=== PATIENT | female | born 1955 | race Caucasian/White ===

== ENCOUNTER 2017-11-01 06:36 | Emergency (ER) | payer OTHER ==
[2017-11-01 07:02] LABS: BILIRUBIN,URINE NEGATIVE (NEGATIVE); GLUCOSE, URINE (UA) NEGATIVE (NEGATIVE); KETONES,URINE (UA) NEGATIVE (NEGATIVE); LEUKOCYTE ESTERASE, URINE NEGATIVE (NEGATIVE); NITRITE,URINE POSITIVE (NEGATIVE); OCCULT BLOOD,URINE SMALL (NEGATIVE); PH,URINE 5.5 PH (5.0-7.5); PROTEIN,URINE NEGATIVE (NEGATIVE); UROBILINOGEN,URINE 0.2 (NORMAL) E.U./dL (NORMAL)
[2017-11-01 07:15] LABS: CLARITY,URINE SL. CLOUDY (CLEAR)
[2017-11-01 07:16] LABS: BACTERIA,URINE Many /HPF (None Seen); SQUAMOUS EPITHELIAL CELL,UR RARE Squamous (<= Few)
[2017-11-01] MEDS ORDERED: KETOROLAC 60 MG/2 ML VIAL IVP STA (07:24)
--- NOTE | 2017-11-01 07:29 | ED Physician Documentation ---
PD HPI ABD PAIN - Stated complaint Stated Complaint: ABD PX/BACK PX - Chief complaint Chief Complaint: Abd Pain - History obtained from History obtained from: Patient - History of Present Illness Timing - onset: How many hours ago (5) Timing - duration: Hours (5) Timing - details: Still present Pain level now: 8 Quality: Pain Location: Other (Not well localized.) Radiation: Upper back Improved by: Other (nothing) Worsened by: Other (nothing) Associated symptoms: No: Fever, Nausea, Vomiting, Diarrhea, Dysuria Similar symptoms before: Has not had sx before - Additional information Additional information: The patient is a 62-year-old female who presents with abdominal pain that started about 2:30 this morning and has persisted since that time. The abdominal pain is generalized and radiates into the upper back. She rates it at 8 out of 10 in severity. She denies associated nausea, vomiting, diarrhea, fever, or dysuria. She has no history of similar symptoms in the past. She has had no abdominal surgery. She last ate last night about 9 PM. Review of Systems Constitutional: denies: Fever Nose: denies: Congestion Throat: denies: Sore throat Cardiac: denies: Chest pain / pressure Respiratory: denies: Dyspnea, Cough GI: reports: Abdominal Pain. denies: Nausea, Vomiting, Diarrhea : denies: Dysuria Skin: denies: Rash Musculoskeletal: reports: Back pain Neurologic: denies: Focal weakness, Numbness, Headache PD PAST MEDICAL HISTORY - Past Medical History Cardiovascular: Hypertension, High cholesterol Endocrine/Autoimmune: Type 2 diabetes : Frequency HEENT: Glaucoma, Other Musculoskeletal: Osteoarthritis - Past Surgical History Ortho: Hip replacement - Present Medications Home Medications: Ambulatory Orders Medication Instructions Recorded Confirmed Nitrofurantoin [Macrobid] 100 mg PO BID #10 capsule 11/01/17 Promethazine [Phenergan] 25 - 50 mg PO Q6H PRN #10 tab 11/01/17 - Allergies Allergies/Adverse Reactions: Allergies Allergy/AdvReac Type Severity Reaction Status Date / Time No Known Drug Allergies Allergy Verified 11/01/17 06:43 - Social History Does the pt smoke?: No Smoking Status: Never smoker Does the pt drink ETOH?: Yes Substance Use and Type: Other - Immunizations Immunizations are current?: No PD ED PE NORMAL - Vitals Vital signs reviewed: Yes (Hypertensive) - General General: Alert and oriented X 3, Well developed/nourished - HEENT HEENT: Atraumatic, Moist mucous membranes, Pharynx benign - Neck Neck: No adenopathy, No JVD - Cardiac Cardiac: RRR, No murmur - Respiratory Respiratory: No respiratory distress, Clear bilaterally - Abdomen Abdomen: Normal bowel sounds, Soft, No organomegaly, Other (Tender to palpation in the right upper quadrant, without rebound tenderness or guarding.) - Back Back: No CVA TTP - Derm Derm: No rash - Extremities Extremities: No edema, No calf tenderness / cord - Neuro Neuro: Alert and oriented X 3, No motor deficit, No sensory deficit, Normal speech Results - Vitals Vitals: Oxygen O2 Source Room air - Labs Labs: Microbiology 11/01/17 06:45 Urine Culture - Preliminary Urine,Clean Catch Laboratory Tests 11/01/17 11/01/17 11/01/17 06:45 07:40 07:40 WBC 8.9 RBC 4.70 Hgb 14.2 Hct 41.1 MCV 87.5 MCH 30.2 MCHC 34.5 RDW 12.4 Plt Count 152 MPV 9.5 Neut # 7.4 H Lymph # 1.1 L Gregg # 0.4 Eos # 0.1 Baso # 0.0 Absolute Nucleated RBC 0.00 Nucleated RBC % 0.0 Sodium 136 Potassium 4.0 Chloride 103 Carbon Dioxide 24 Anion Gap 9.0 BUN 26 H Creatinine 0.8 Estimated GFR (MDRD) 73 L Glucose 189 H Calcium 9.7 Total Bilirubin 0.7 AST 25 ALT 28 Alkaline Phosphatase 60 Total Protein 7.3 Albumin 4.6 Globulin 2.7 Albumin/Globulin Ratio 1.7 Lipase 21 L Urine Color YELLOW Urine Clarity SL. CLOUDY Urine pH 5.5 Ur Specific [place] 1.025 Urine Protein NEGATIVE Urine Glucose (UA) NEGATIVE Urine Ketones NEGATIVE Urine Occult Blood SMALL H Urine Nitrite POSITIVE H Urine Bilirubin NEGATIVE Urine Urobilinogen 0.2 (NORMAL) Ur Leukocyte Esterase NEGATIVE Urine RBC 6-10 H Urine WBC 6-10 H Ur Squamous Epith Cells RARE Squamous Urine Bacteria Many H Ur Microscopic Review INDICATED Urine Culture Comments INDICATED - Rads (name of study) RUQ U/S Radiology: Prelim report reviewed, EMP read contemporaneously, See rad report ( Cholelithiasis, without evidence of acute cholecystitis. Common bile duct 3 mm. Otherwise normal.) PD MEDICAL DECISION MAKING - ED course Complexity details: reviewed results, re-evaluated patient, considered differential, d/w patient ED course: The patient's presentation is most consistent with symptomatic cholelithiasis, although she also has evidence of urinary tract infection, with pyuria and bacteriuria. Ultrasound of the right upper quadrant reveals cholelithiasis, without evidence of acute cholecystitis. Her white count is normal, as are liver enzymes and lipase. Treatment in the emergency department included administration of normal saline 1 L IV, ketorolac 30 mg IV, morphine 5 mg IV, and ondansetron 4 mg IV. Her symptoms markedly improved with the above treatment. Macrobid 100 mg was administered orally. She is being discharged with prescriptions for Macrobid and for Phenergan. I discussed with her the results of the workup and the diagnoses, outpatient treatment and follow-up, as well as potentially worrisome signs or symptoms that should prompt reevaluation in the emergency department. Departure - Departure Disposition: 01 Home, Self Care Clinical Impression: Dehydration Abdominal pain Qualifiers: Abdominal location: right upper quadrant Qualified Code(s): R10.11 - Right upper quadrant pain Cholelithiasis Qualifiers: Cholelithiasis location: gallbladder Cholecystitis presence: without cholecystitis Biliary obstruction: without biliary obstruction Qualified Code(s) : K80.20 - Calculus of gallbladder without cholecystitis without obstruction Urinary tract infection Qualifiers: Urinary tract infection type: acute cystitis Hematuria presence: without hematuria Qualified Code(s): N30.00 - Acute cystitis without hematuria Condition: Stable Instructions: Gallstones, ED UTI Cystitis Female Prescriptions: Nitrofurantoin [Macrobid] 100 mg PO BID #10 capsule Promethazine [Phenergan] 25 - 50 mg PO Q6H PRN #10 tab PRN Reason: Nausea / Vomiting Comments: Drink plenty of fluids, including cranberry juice. Take Macrobid twice daily as prescribed. You can use Phenergan as prescribed if needed for nausea. Follow up with your primary physician within 1-2 weeks. Call to schedule an appointment. Return to the emergency department if you develop increasing abdominal pain, persistent vomiting, fever with shaking chills, or otherwise worsening symptoms. Discharge Date/Time: 11/01/17 11:09
[2017-11-01 08:01] LABS: BASOPHILS % (AUTO) 0.5 %; EOSINOPHILS # (AUTO) 0.1 10^3/uL (0.0-0.7); EOSINOPHILS % (AUTO) 0.8 %; HGB - HEMOGLOBIN 14.2 g/dL (12.0-16.0); LYMPHOCYTES # (AUTO) 1.1 10^3/uL (1.5-3.5); LYMPHOCYTES % (AUTO) 12.3 %; MEAN CORPUSCULAR HEMOGLOBIN 30.2 pg (27.0-31.0); MEAN CORPUSCULAR HGB CONC 34.5 g/dL (32.0-36.0); MEAN CORPUSCULAR VOLUME 87.5 fL (81.0-99.0); MEAN PLATELET VOLUME 9.5 fL (7.9-10.8); MONOCYTES # (AUTO) 0.4 10^3/uL (0.0-1.0); NEUTROPHILS # (AUTO) 7.4 10^3/uL (1.5-6.6); NEUTROPHILS % (AUTO) 82.4 %; PLT - PLATELET COUNT 152 10^3/uL (130-450); RED CELL DISTRIBUTION WIDTH 12.4 % (12.0-15.0); WHITE BLOOD COUNT 8.9 x10^3/uL (4.8-10.8)
[2017-11-01 08:10] LABS: ALBUMIN 4.6 g/dL (3.2-5.5); ALBUMIN/GLOBULIN RATIO 1.7 (1.0-2.2); BILIRUBIN,TOTAL 0.7 mg/dL (0.2-1.0); CALCIUM 9.7 mg/dL (8.5-10.3); CREATININE 0.8 mg/dL (0.4-1.0); TOTAL PROTEIN 7.3 g/dL (6.7-8.2)
[2017-11-01] MEDS ORDERED: ONDANSETRON 4 MG/2 ML VIAL IVP STA (08:50)
[2017-11-01] MEDS ORDERED: MORPHINE 10 MG/ML VIAL IVP STA (08:50)
[2017-11-01] MEDS ORDERED: SODIUM CHLORIDE 0.9% 1,000 ML IV ONE (09:36)
[2017-11-01] MEDS ORDERED: NITROFURANTOIN MACRO 100 MG CAPSULE PO STA (09:36)
--- NOTE | 2017-11-01 09:53 | Ultrasound Report ---
RIGHT UPPER QUADRANT ULTRASOUND: 11/01/2017 CLINICAL INDICATION: Pain. TECHNIQUE: Real-time scanning was performed with transportation services representative static images obtained. FINDINGS: The liver measures 13.4 cm. Hepatic echotexture is normal. No intrahepatic biliary dilatation or focal parenchymal lesion is seen. The common bile duct measures 3 mm. The gallbladder demonstrates cholelithiasis. No wall thickening or pericholecystic fluid is present. The right kidney measures 10.1 cm, and demonstrates no hydronephrosis. No free fluid is seen. IMPRESSION: CHOLELITHIASIS, WITHOUT EVIDENCE OF ACUTE CHOLECYSTITIS OR BILIARY DILATATION. TD: 11/01/2017 09:52
[2017-11-01 11:09] VITALS: BP 115/74
== END 2017-11-01 11:09 | disposition home or self-care (01) ==
LOC: ED 06:36
DX: E86.0 Dehydration (principal); K80.20 Calculus of gallbladder without cholecystitis without obstruction; N30.00 Acute cystitis without hematuria; R10.11 Right upper quadrant pain; I10 Essential (primary) hypertension; E78.00 Pure hypercholesterolemia, unspecified; E11.9 Type 2 diabetes mellitus without complications; M19.90 Unspecified osteoarthritis, unspecified site
CPT/HCPCS: 36415; 76705; 80053; 81001; 83690; 85025; 87077; 87086; 87181; 96361; 96374; 99283; 99284; A9270; 81003

== ENCOUNTER 2018-08-01 06:11 | Day surgery (SDC) | payer OTHER ==
[2018-08-01] MEDS ORDERED: CYCLOPENTOLATE 1% OPHTH DROPS 2 ML ONE (06:30)
[2018-08-01] MEDS ORDERED: KETOROLAC 0.45% OPHTH DROPS ONE (06:30)
[2018-08-01] MEDS ORDERED: PROPARACAINE 0.5% OPHTH DROPS 15 ML ONE (06:30)
[2018-08-01] MEDS ORDERED: PHENYLEPHRINE 2.5% OPHTH 2 ML DROPS ONE (06:30)
[2018-08-01] MEDS ORDERED: LACTATED RINGERS 500 ML IV ONE (06:34)
[2018-08-01] MEDS ORDERED: KETOROLAC 0.45% OPHTH DROPS RIGHTEYE ONE (06:45)
[2018-08-01] MEDS ORDERED: PHENYLEPHRINE 2.5% OPHTH 2 ML DROPS RIGHTEYE ONE (06:45)
[2018-08-01] MEDS ORDERED: PROPARACAINE 0.5% OPHTH DROPS 15 ML RIGHTEYE ONE (06:45)
[2018-08-01] MEDS ORDERED: CYCLOPENTOLATE 1% OPHTH DROPS 2 ML RIGHTEYE ONE (06:45)
--- NOTE | 2018-08-01 07:09 | ANESTHESIA ---
Pre-Anesthesia VS, & Labs - Diagnosis combined senile cataract - Procedure cataract extraction wiyh intra ocular lens implant Vital Signs: Temp Pulse Resp BP Pulse Ox 36.4 C L 53 L 20 145/86 H 97 08/01/18 06:38 08/01/18 06:38 08/01/18 06:38 08/01/18 06:38 08/01/18 06:38 Height 5 ft 4 in Weight (kg) 70.76 kg Body Mass Index 28.3 - NPO >8 hours - Is Patient ?: Not Applicable - Lab Results Current Lab Results: Laboratory Tests 08/01/18 06:53: POC Whole Bld Glucose 127 H Home Medications and Allergies Home Medications: Ambulatory Orders Losartan [Cozaar] 50 mg PO DAILY 08/01/18 Losartan [Cozaar] 50 mg PO DAILY 08/01/18 Allergies/Adverse Reactions: Allergies Allergy/AdvReac Type Severity Reaction Status Date / Time No Known Drug Allergies Allergy Verified 11/01/17 06:43 Anes History & Medical History - Anesthetic History Anesthesia Complications: reports: No previous complications Family history of Anesthesia Complications: Denies Family history of Malignant Hyperthermia: Denies - Medical History Cardiovascular: reports: Hypertension, High cholesterol Pulmonary: reports: None Gastrointestinal: reports: Colon polyps Urinary: reports: None Musculoskeletal: reports: Osteoarthritis, Chronic back pain Endocrine/Autoimmune: reports: Type 2 diabetes Smoking Status: Never smoker - Surgical History General: Colonoscopy Orthopedic: Hip replacement Exam General: Alert Dental: Loose/Frag, Other (cap) Mouth Openin Fingerbreadth Neck Mobility: Normal Mallampati classification: III Thyromental Distance: 4-6 cm Respiratory: Lungs clear, Normal breath sounds, No respiratory distress, No accessory muscle use Cardiovascular: Normal S1, Normal S2 Mental/Cognitive Status: Alert/Oriented X3, Normal for patient Plan Anesthesia Type: MAC Consent for Procedure(s) Verified and Reviewed: No Code Status: Attempt Resuscitation ASA classification: 2-Mild systemic disease Is this case an emergency?: No
[2018-08-01] MEDS ORDERED: BRIMONIDINE 0.2% OPHTH DROPS 5 ML ONE (07:10)
[2018-08-01] MEDS ORDERED: TRIAMCIN/MOXIFLOX OPHTHALMIC 0.6 ML VIAL IO ONE ×2 (07:10→07:38)
[2018-08-01] MEDS ORDERED: EPINEPHrine 1 MG/ML AMP ONE (07:11)
[2018-08-01] MEDS ORDERED: TIMOLOL 0.5% OPHTH DROPS ONE (07:11)
[2018-08-01] MEDS ORDERED: BSS/LIDOCAINE/EPINEPHRINE 1 ML SYRINGE ONE (07:12)
[2018-08-01] MEDS ORDERED: VANCOMYCIN OPHTHALMI 8MG/0.8ML 8 MG/0.8 ML SYRINGE IO ONE ×2 (07:12→07:39)
[2018-08-01] MEDS ORDERED: MIDAZOLAM 2 MG/2 ML VIAL IVP ONE (07:34)
[2018-08-01] MEDS ORDERED: BRIMONIDINE 0.2% OPHTH DROPS 5 ML OPTH ONE (07:37)
[2018-08-01] MEDS ORDERED: EPINEPHrine 1 MG/ML AMP IVP ONE (07:38)
[2018-08-01] MEDS ORDERED: BSS/LIDOCAINE/EPINEPHRINE 1 ML SYRINGE IO ONE (07:38)
[2018-08-01] MEDS ORDERED: TIMOLOL 0.5% OPHTH DROPS OPTH ONE (07:38)
[2018-08-01] MEDS ORDERED: CHONDR SULF/HYALURONATE SYRINGE IO ONE (07:38)
[2018-08-01 08:06] VITALS: BP 116/75
--- NOTE | 2018-08-01 08:26 | OPERATIVE REPORT ---
DATE OF SERVICE: 08/01/2018 Physician: Rizwan Cain MD PREOPERATIVE DIAGNOSIS: Visually significant cataract, right eye. This was her first cataract surge ry. We are also doing surgery because she has glaucoma and there has been some difficulty in control ling her glaucoma, and the hope is that cataract surgery will allow us to do laser or, in itself, low er her pressure. POSTOPERATIVE DIAGNOSIS: Visually significant cataract, right eye. This was her first cataract surg carmela. We are also doing surgery because she has glaucoma and there has been some difficulty in contro lling her glaucoma, and the hope is that cataract surgery will allow us to do laser or, in itself, lo wer her pressure. PROCEDURE: Phacoemulsification with posterior chamber intraocular lens implant, right eye. SURGEON: Rizwan Cain MD SUPERVISOR INSTRUMENT REPAIR: ANESTHESIA TYPE: Monitored anesthesia care. COMPLICATIONS: None. OPERATIVE INDICATIONS: This is a 63-year-old woman with progressive vision loss in the right eye due to 1-2+ nuclear sclerotic and 3+ cortical cataract. Best corrected visual acuity was 20/25 with gla re to 20/40 in the right eye. Indications for surgery are overall decrease in vision, difficulty see ing words on a computer screen, difficulty reading; difficulty seeing words, closed caption or game s cores on TV; difficulty seeing street signs, difficulty driving in low light or at night, difficulty driving at night because headlights from other vehicles, and difficulty with glare or bright lights i n any situation, and also to have some sort of positive effect on the control of her glaucoma. She w as consented at length concerning risks and benefits of cataract surgery and of glaucoma treatment, a fter which she expressed a desire to proceed with surgery. OPERATIVE PROCEDURE: Patient was taken to into OR #3 and placed under monitored anesthesia care. A surgical timeout was conducted confirming correct patient, correct procedure, correct surgical site. She was given topical anesthesia, and then prepped and draped in the usual sterile fashion. The eye was entered at the 12 and 9 o'clock positions. Intracameral Shugarcaine was injected into the anter ior chamber, followed by Viscoat. A continuous-tear curvilinear capsulorrhexis was performed. The n ucleus was hydrodissected and phacoemulsified. The cortex was evacuated using automated infusion and aspiration. Provisc was injected in the capsular bag, and an 8.0 diopter intraocular lens inserted in the bag. Approximately 0.8 mL of a mixture of triamcinolone, moxifloxacin, and vancomycin was inj ected subconjunctivally in the superior quadrant for infection and inflammation prophylaxis. I and A was used to evacuate the viscoelastic materials. The eye was inflated to physiologic pressure using a balanced salt solution and found to be watertight. Patient was taken from the operating room in g ood condition and given postop instructions. TD: 08/01/2018 08:06
== END 2018-08-01 06:12 | disposition home or self-care (01) ==
LOC: SDS 06:11
PROVIDERS: ATTEND Ophthalmology
PROC: 08RJ3JZ Replacement of Right Lens with Synthetic Substitute, Percutaneous Approach (ICD-10-PCS; principal; 2018-08-01 07:30)
DX: H25.811 Combined forms of age-related cataract, right eye (principal); H40.1190 Primary open-angle glaucoma, unspecified eye, stage unspecified; E11.9 Type 2 diabetes mellitus without complications; I10 Essential (primary) hypertension
CPT/HCPCS: 66984; A9270; J3490

== ENCOUNTER 2018-08-16 10:49 | Outpatient (CLI) | payer OTHER ==
--- NOTE | 2018-08-16 12:38 | Mammography Report ---
Reason: MASTODYNIA Procedure Date: 08/16/2018 Accession Number: [id number] / [id number] Procedure: MARISSA - Diagnostic Dig Bilat CPT Code: FULL RESULT: EXAM: Diagnostic Dig Bilat DATE: 08/16/2018 11:28 AM CLINICAL HISTORY: Mastodynia, left breast on and off for years. TECHNIQUE: Bilateral CC and MLO views as well as a left ML view were obtained. COMPARISON: 09/25/2011. FINDINGS: The breasts demonstrate diffuse fatty replacement bilaterally. No suspicious calcifications, architectural distortion or masses identified in either breast. Specifically, the left breast is normal mammographically. IMPRESSION: Negative examination RECOMMENDATION: Recommend routine annual Screening mammography unless otherwise clinically indicated. BIRADS CATEGORY 1: Negative STANDARD QUALIFYING STATEMENTS: 1. This examination was not reviewed with the aid of Computer-Aided Detection (CAD). 2. A negative or benign imaging report should not delay biopsy if clinically suspicious findings are present. Consider surgical consultation if warrented. More than 5% of cancers are not identified by imaging. 3. Dense breasts may obscure an underlying neoplasm. 4. This examination was reviewed with the aid of 3D imaging (tomography).
== END 2018-08-16 10:50 | disposition home or self-care (01) ==
LOC: DI 10:49
PROVIDERS: ATTEND Naturopath
DX: N64.4 Mastodynia (principal)
CPT/HCPCS: 77066

== ENCOUNTER 2018-10-03 07:30 | Day surgery (SDC) | payer OTHER ==
[~2018-10-03 07:30] MED LIST: BRIMONIDINE 0.2% OPHTH DROPS 5 ML ONE; CYCLOPENTOLATE 1% OPHTH DROPS 2 ML ONE; KETOROLAC 0.45% OPHTH DROPS ONE; PHENYLEPHRINE 2.5% OPHTH 2 ML DROPS ONE; PROPARACAINE 0.5% OPHTH DROPS 15 ML ONE; TIMOLOL 0.5% OPHTH DROPS ONE; TRIAMCIN/MOXIFLOX OPHTHALMIC 0.6 ML VIAL IO ONE; VANCOMYCIN OPHTHALMI 8MG/0.8ML 8 MG/0.8 ML SYRINGE IO ONE
[2018-10-03] MEDS ORDERED: CYCLOPENTOLATE 1% OPHTH DROPS 2 ML LEFTEYE ONE (07:45)
[2018-10-03] MEDS ORDERED: KETOROLAC 0.45% OPHTH DROPS LEFTEYE ONE (07:45)
[2018-10-03] MEDS ORDERED: PROPARACAINE 0.5% OPHTH DROPS 15 ML LEFTEYE ONE (07:45)
[2018-10-03] MEDS ORDERED: PHENYLEPHRINE 2.5% OPHTH 2 ML DROPS LEFTEYE ONE (07:45)
[2018-10-03] MEDS ORDERED: LACTATED RINGERS 500 ML IV ONE (07:48)
--- NOTE | 2018-10-03 08:06 | ANESTHESIA ---
Pre-Anesthesia VS, & Labs - Diagnosis Left eye senile combined cataract - Procedure cataract extraction with probable intraocular lens implant left eye Vital Signs: Temp Pulse Resp BP Pulse Ox 36.7 C 55 L 16 139/87 H 99 10/03/18 07:37 10/03/18 07:37 10/03/18 07:37 10/03/18 07:37 10/03/18 07:37 Height 5 ft 3 in Weight (kg) 72.2 kg Body Mass Index 28.3 - NPO >8 hours Last Fluid Intake: 0615 h20 - Is Patient ?: No - Lab Results Current Lab Results: Laboratory Tests 10/03/18 07:47: POC Whole Bld Glucose 147 H Home Medications and Allergies Losartan [Cozaar] 50 mg PO DAILY 08/01/18 Allergies/Adverse Reactions: Allergies Allergy/AdvReac Type Severity Reaction Status Date / Time No Known Drug Allergies Allergy Verified 11/01/17 06:43 Anes History & Medical History - Anesthetic History Anesthesia Complications: reports: No previous complications - Medical History Cardiovascular: reports: Hypertension, High cholesterol Pulmonary: reports: None Gastrointestinal: reports: Colon polyps Urinary: reports: None Neuro: reports: None Musculoskeletal: reports: Osteoarthritis, Chronic back pain Endocrine/Autoimmune: reports: Type 2 diabetes (diet controlled) Blood Disorders: reports: None Skin: reports: None Smoking Status: Never smoker Psychosocial: reports: No issues indicated - Surgical History General: Colonoscopy Eyes Ears Nose Throat (EENT): Cataracts Orthopedic: Hip replacement Exam General: Alert, Oriented x3, Cooperative, No acute distress Dental: WNL Mouth Openin Fingerbreadth Neck Mobility: Normal Mallampati classification: II Respiratory: Lungs clear, Normal breath sounds, No respiratory distress, No accessory muscle use Cardiovascular: Regular rate, Normal S1, Normal S2, No murmurs Mental/Cognitive Status: Alert/Oriented X3, Normal for patient Plan Anesthesia Type: MAC Consent for Procedure(s) Verified and Reviewed: Yes Code Status: Attempt Resuscitation ASA classification: 2-Mild systemic disease Is this case an emergency?: No
[2018-10-03] MEDS ORDERED: BRIMONIDINE 0.2% OPHTH DROPS 5 ML OPTH ONE (08:39)
[2018-10-03] MEDS ORDERED: EPINEPHrine 1 MG/ML AMP IVP ONE (08:39)
[2018-10-03] MEDS ORDERED: BSS/LIDOCAINE/EPINEPHRINE 1 ML SYRINGE IO ONE (08:40)
[2018-10-03] MEDS ORDERED: TIMOLOL 0.5% OPHTH DROPS OPTH ONE (08:40)
[2018-10-03] MEDS ORDERED: CHONDR SULF/HYALURONATE SYRINGE IO ONE (08:40)
[2018-10-03] MEDS ORDERED: TRIAMCIN/MOXIFLOX OPHTHALMIC 0.6 ML VIAL IO ONE (08:42)
[2018-10-03] MEDS ORDERED: VANCOMYCIN OPHTHALMI 8MG/0.8ML 8 MG/0.8 ML SYRINGE IO ONE (08:44)
[2018-10-03 09:17] VITALS: BP 111/80
--- NOTE | 2018-10-03 10:11 | OPERATIVE REPORT ---
DATE OF SERVICE: 10/03/2018 Physician: Rizwan Cain MD PREOPERATIVE DIAGNOSIS: Visually significant cataract, left eye. Cataract surgery was performed on the right eye on 08/01/2018. POSTOPERATIVE DIAGNOSIS: Visually significant cataract, left eye. Cataract surgery was performed on the right eye on 08/01/2018. PROCEDURE: Phacoemulsification with posterior chamber intraocular lens implant, left eye. SURGEON: Rizwan Cain MD ANESTHESIA: Monitored anesthesia care. COMPLICATIONS: None. OPERATIVE INDICATIONS: This is a 63-year-old woman with progressive vision loss in the left eye due to 1 to 2+ nuclear sclerotic and 2 to 3+ cortical cataract. Best corrected visual acuity was 20/30 with glare to 20/60 in the left eye. Indications for surgery are overall decrease in vision, difficulty seeing words on a computer screen, difficulty reading, difficulty seeing words, closed captions or game scores on TV, difficulty seeing street signs, difficulty driving in low light or at night, difficulty driving at night because of headlights of other vehicles, and difficulty with glare or bright lights in any situation. She was consented at length concerning risks and benefits of cataract surgery, after which she expressed a desire to proceed with surgery. OPERATIVE PROCEDURE: The patient was taken into OR #3 and placed under monitored anesthesia care. Surgical timeout was conducted confirming correct patient, correct procedure, and correct surgical site. She was given topical anesthesia, and prepped and draped in the usual sterile fashion. The eye was entered at the 6 and 3-o'clock positions. Intracameral Shugarcaine was injected into the anterior chamber, followed by Viscoat. A continuous-tear curvilinear capsulorrhexis was performed. The nucleus was hydrodissected and phacoemulsified. The cortex was evacuated using automated infusion and aspiration. Provisc was injected in the capsular bag, and a 7.0-diopter intraocular lens inserted in the bag. Approximately 0.8 mL of a mixture of triamcinolone, moxifloxacin and vancomycin was injected subconjunctivally in the superior quadrant for infection and inflammation prophylaxis. I and A was used to evacuate the viscoelastic material. The eye was inflated to physiologic pressure using balanced salt solution and found to be watertight. The patient was taken from the operating room in good condition and given postop instructions. TD: 10/03/2018 09:07 ABRAM
== END 2018-10-03 07:31 | disposition home or self-care (01) ==
LOC: SDS 07:30
PROVIDERS: ATTEND Ophthalmology
PROC: 08RK3JZ Replacement of Left Lens with Synthetic Substitute, Percutaneous Approach (ICD-10-PCS; principal; 2018-10-03 08:30)
DX: H25.812 Combined forms of age-related cataract, left eye (principal); E11.9 Type 2 diabetes mellitus without complications; I10 Essential (primary) hypertension
CPT/HCPCS: 66984; A9270; J3490

== ENCOUNTER 2019-04-18 14:34 | Outpatient (CLI) | payer OTHER ==
--- NOTE | 2019-04-18 15:27 | XRAY Report ---
Reason: OTHER ACQUIRED DEFORMITY OF HEAD ALONG MIDSAGITTAL Procedure Date: 04/18/2019 Accession Number: [id number] / [id number] Procedure: XRS - Skull Complete CPT Code: FULL RESULT: EXAM: SKULL RADIOGRAPHY EXAM DATE: 04/18/2019 02:49 PM. CLINICAL HISTORY: Palpable midline scalp nodule. COMPARISON: None. TECHNIQUE: 2 views. FINDINGS: Bones: Normal. No fractures or bone lesions. Sinuses: Normal. No opacities or fluid levels. Other: Normal. No soft tissue swelling. IMPRESSION: Normal skull radiography. No visible osseous or soft tissue abnormality. RADIA
== END 2019-04-18 14:35 | disposition home or self-care (01) ==
LOC: DI.S 14:34
PROVIDERS: ATTEND Naturopath
DX: M95.2 Other acquired deformity of head (principal)
CPT/HCPCS: 70260

== ENCOUNTER 2022-07-14 13:56 | Outpatient (CLI) | payer OTHER ==
--- NOTE | 2022-07-14 15:59 | XRAY Report ---
PROCEDURE: Hip w/Pelvis 2-3V LT INDICATIONS: PAIN OF LEFT HIP JOINT TECHNIQUE: AP pelvis with lateral view(s) of the left hip(s). COMPARISON: None. FINDINGS: Bones: Right hip arthroplasty in place in appropriate position. The pelvic ring appears intact. Scatt ered enthesopathic and degenerative changes. Advanced arthrosis of the left hip, with greater trochanteric enthesopathic changes. Soft tissues: Moderate fecal loading and suspected phleboliths. IMPRESSION: Advanced arthrosis of the left hip. Scattered degenerative/enthesopathic changes elsewhere. Right hip arthroplasty is in place. Reviewed by: Jhon Gong MD on 07/14/2022 3:58 PM PST Approved by: Jhon Gong MD on 07/14/2022 3:58 PM PST Station ID: [id number]
== END 2022-07-14 13:57 | disposition home or self-care (01) ==
LOC: DI.S 13:56
PROVIDERS: ATTEND Nurse Practitioner Family
DX: M16.12 Unilateral primary osteoarthritis, left hip (principal); Z96.641 Presence of right artificial hip joint

== ENCOUNTER 2022-07-26 10:55 | Outpatient (CLI) | payer OTHER ==
--- NOTE | 2022-07-27 10:36 | Mammography Report ---
BILATERAL DIGITAL SCREENING MAMMOGRAM 3D/2D: 07/26/2022 CLINICAL: Routine screening. Comparison is made to exams dated: 08/16/2018 mammogram and 09/25/2011 mammogram - [facility]. Both breasts are almost entirely fatty (category a/<25% glandular tissue). No significant masses, calcifications, or other findings are seen in either breast. There has been no significant interval change. IMPRESSION: NEGATIVE There is no mammographic evidence of malignancy. A 1 year screening mammogram is recommended. Based on the Tyrer Cuzick model (a risk assessment model) the patients lifetime risk is 5.1% and her 10 year risk is 2.6%. According to the ACR, ACS, and NCCN guidelines, an annual breast MRI exam juan g with mammogram is recommended if the patients lifetime risk is 20% or greater. This exam was interpreted at Station ID: [id number]. NOTE: For mammograms, a report in lay terms will be sent to the patient. Approximately 15% of breast malignancies will not be visualized mammographically. In the management of a palpable breast mass, a negative mammogram must not discourage biopsy of a clinically suspicious lesion. Electronically Signed By: Jose Catalan M.D. aty/penrad:07/26/2022 17:25:21 ACR BI-RADS Category 1: Negative 3341F PARENCHYMAL PATTERN: (F) - The breast(s) demonstrate(s) diffuse fatty replacement. BI-RADS CATEGORY: (1) - 1 RECOMMENDATION: (ANNUAL) - Recommend routine annual screening mammography. [id number] 1 year screening LATERALITY: (B)
== END 2022-07-26 10:56 | disposition home or self-care (01) ==
LOC: DI.S 10:55
PROVIDERS: ATTEND Nurse Practitioner Family
DX: Z12.31 Encounter for screening mammogram for malignant neoplasm of breast (principal)

== ENCOUNTER 2023-12-05 08:00 | Outpatient (CLI) | payer OTHER ==
--- NOTE | 2023-12-05 17:04 | XRAY Report ---
PROCEDURE: Chest 2V INDICATIONS: CHEST DISCOMFORT TECHNIQUE: 2 views of the chest were acquired. COMPARISON: None. FINDINGS: Surgical changes and devices: None. Lungs and pleura: No pleural effusions or pneumothorax. Lungs are clear. Mediastinum: Mediastinal contours appear normal. Heart size is normal. Bones and chest wall: No suspicious bony lesions. Overlying soft tissues appear unremarkable. IMPRESSION: No acute cardiopulmonary process. Reviewed by: Casey Arrington MD on 12/05/2023 5:02 PM PDT Approved by: Casey Arrington MD on 12/05/2023 5:02 PM PDT Station ID: [id number]
== END 2023-12-05 23:59 | disposition home or self-care (01) ==
LOC: DI.S 08:00
PROVIDERS: ATTEND Registered Nurse
DX: R07.89 Other chest pain (principal)

== ENCOUNTER 2024-01-10 13:46 | Outpatient (CLI) | payer OTHER ==
--- NOTE | 2024-01-10 22:17 | XRAY Report ---
PROCEDURE: Hip w/Pelvis 2-3V LT INDICATIONS: OSTEOARTHRITIS OF LT HIP JOINT TECHNIQUE: 3 views of the hip were acquired. COMPARISON: X-ray hip 07/14/2010 FINDINGS: Bones: No fractures or dislocations. No suspicious bony lesions. Right hip arthroplasty. Hardware is intact without evidence of hardware fracture or periprosthetic lucency to suggest loosening. Ther e is severe degenerative changes within the left hip. [id number] is present with subchondral sclero sis, particular osteophytes and subchondral lucencies. Marked interval progression compared to prior exam. There is slight appearance of femoral head flattening. Soft tissues: No suspicious soft tissue calcifications or masses. IMPRESSION: Marked interval progression of right hip arthritis with early changes suggestive of AVN. Reviewed by: Nicolasa Luna MD on 01/10/2024 10:15 PM PDT Approved by: Nicolasa Luna MD on 01/10/2024 10:15 PM PDT Station ID: [id number]
== END 2024-01-10 13:47 | disposition home or self-care (01) ==
LOC: DI.S 13:46
PROVIDERS: ATTEND Registered Nurse
DX: M16.12 Unilateral primary osteoarthritis, left hip (principal); Z96.641 Presence of right artificial hip joint

== ENCOUNTER 2024-01-23 15:22 | Outpatient (CLI) | payer OTHER ==
[2024-01-23 16:01] LABS: ALBUMIN 4.7 g/dL (3.2-5.5); ALKALINE PHOSPHATASE 94 IU/L (42-121); ALT ALANINE AMINOTRANSFERASE 64 IU/L (10-60); AST ASPARTATE AMINOTRANSFERASE 43 IU/L (10-42); BILIRUBIN,DIRECT < 0.10 mg/dL (0.03-0.18); BILIRUBIN,TOTAL 0.7 mg/dL (0.2-1.0); TOTAL PROTEIN 7.9 g/dL (6.4-8.9)
== END 2024-01-23 15:23 | disposition home or self-care (01) ==
LOC: LAB 15:22
PROVIDERS: ATTEND Naturopath
DX: R74.01 Elevation of levels of liver transaminase levels (principal)
CPT/HCPCS: 36415; 80076